=== PATIENT | female | born 1955 | race African-American/Black ===

== ENCOUNTER 2017-12-05 21:23 | Emergency (ER) | payer MEDICARE, MEDICAID ==
[~2017-12-05] VITALS: Ht 157.5 cm; Wt 60.0 kg
[~2017-12-05 21:23] MED LIST: ALBU18HF2 IH; AMLO10TA80 PO; ASPI-518 PO; CLON0.2T PO; CLOT21CR4 VG; DIPH1TAB PO; DOCU-150 PO; DOXY150T PO; GABA-531 PO; HYDR25TA PO; INSU3INS8 SQ; KETOROLAC OP; LEVE500T19 PO; LEVPEN SQ; LISI40TA4 PO; METO-396 PO; OMEP20CA10 PO; PRED5DRO7 OP; SIMV20TA6 PO
[2017-12-05 21:33] VITALS: BP 159/81
[2017-12-05] MEDS ORDERED: LORAZEPAM 2MG/ML CPJ IV ONE (22:45)
[2017-12-05] MEDS ORDERED: LEVETIRACETAM 500MG PREMIX 100 ML IV ONE (22:45)
[2017-12-05 23:08] LABS: BASOPHILS % 0.7 % (0.0-2.0); EOSINOPHILS % 4.2 % (0.0-5.0); HEMATOCRIT. 32.1 % (36.0-48.0); LYMPHOCYTES % 36.8 % (20.0-50.0); MEAN CORPUSCULAR HEMOGLOBIN 31.4 pg (28.0-32.0); MEAN CORPUSCULAR VOLUME 91.8 fL (81.0-99.0); MEAN PLATELET VOLUME 11.9 fl (7.4-10.4); MONOCYTES % 8.8 % (2.0-8.0); NEUTROPHILS % 49.5 % (40.0-76.0); PLATELET 161 x1000/uL (130-400); RED CELL DISTRIBUTION WIDTH 12.6 % (11.6-14.6)
[2017-12-05 23:09] LABS: CHLORIDE 106 mEq/L (98-107)
== END 2017-12-06 02:30 | disposition home or self-care (01) ==
LOC: ER 21:23
DX: S20.219A Contusion of unspecified front wall of thorax, initial encounter (principal); I10 Essential (primary) hypertension; E11.9 Type 2 diabetes mellitus without complications; Z88.5 Allergy status to narcotic agent; Z88.0 Allergy status to penicillin; Z88.6 Allergy status to analgesic agent; Z79.4 Long term (current) use of insulin; Z79.82 Long term (current) use of aspirin; V49.3XXA Car occupant (driver) (passenger) injured in unspecified nontraffic accident, initial encounter; Y93.89 Activity, other specified; Y92.89 Other specified places as the place of occurrence of the external cause; Y99.8 Other external cause status
CPT/HCPCS: 36415; 71045; 80053; 84484; 85025; 93005; 96365; 96375; 99285; J1953; J2060